=== PATIENT | female | born 1950 | race Caucasian/White ===

== ENCOUNTER 2017-09-05 10:08 | Observation (INO) | payer MEDICARE ==
[~2017-09-05] VITALS: Ht 170.2 cm; Wt 72.2 kg
[~2017-09-05 10:08] MED LIST: CALC1TAB PO; CARB1DRO OU; CETI-101 PO; CHOL200026 PO; CRAN500C3 PO; ESOM40CA PO; LACT1CAP70 PO; LEVO50TA11 PO; LEVO75TA10 PO; MOME17N NASAL; MULTIVITAMIN PO; POLY17PO4 PO; TAMO20TA4 PO; TRAM-355 PO; [UNRECOGNIZED DRUG - OTHER] PO
[2017-09-05] MEDS ORDERED: SODIUM CHLORIDE 0.9% 1000ML 1,000 ML IV ONE (11:23)
[2017-09-05] MEDS ORDERED: ONDANSETRON HCL MDV 20ML 2 MG/ML VIAL ONE (11:24)
[2017-09-05 11:26] LABS: BASOPHILS % (AUTO) 0.3 % (0.0-5.0); EOSINOPHILS % (AUTO) 1.1 % (0.0-8.0); HEMATOCRIT 31.1 % (36-48); LYMPHOCYTES % (AUTO) 10.5 % (21.0-51.0); MEAN CORPUSCULAR HGB CONC 35.3 g/dL (32.0-36.0); MEAN CORPUSCULAR VOLUME 90.8 fL (79-99); MONOCYTES % (AUTO) 3.2 % (3.0-13.0); NEUTROPHILS % (AUTO) 84.9 % (40.0-77.0); PLATELET COUNT (AUTO) 150 K/uL (130-400); RED BLOOD CELL COUNT(AUTO) 3.43 MIL/uL (4.00-5.50); RED CELL DISTRIBUTION WIDTH 19.2 % (11.0-15.5); WHITE BLOOD COUNT (AUTO) 5.2 K/uL (4.8-10.8)
[2017-09-05 11:29] LABS: CREATININE 1.1 mg/dL (0.5-1.5); POTASSIUM 3.9 mmol/L (3.5-5.1)
[2017-09-05 11:34] LABS: ALBUMIN 3.8 g/dL (3.5-5.0); BILIRUBIN,TOTAL 0.4 mg/dL (0.2-1.0); INR 0.98 (0.85-1.15); PROTHROMBIN TIME 10.3 SEC (9.6-11.6); TOTAL PROTEIN, SERUM 6.5 g/dL (6.0-8.3)
[2017-09-05 12:01] LABS: PARTIAL THROMBOPLASTIN TIME > 120.0 SEC (26.3-35.5)
[2017-09-05] MEDS ORDERED: CEFTRIAXONE SODIUM 1 GM ONE (13:00)
[2017-09-05] MEDS ORDERED: MORPHINE SULFATE 4 MG/1ML SYG ONE ×2 (13:00→19:10)
[2017-09-05] MEDS ORDERED: HYDRALAZINE HCL 20 MG/ML VIAL IV PRN (15:30)
[2017-09-05] MEDS ORDERED: GUAIFENESIN-DM 200/20 MG 10 ML PO PRN (15:30)
[2017-09-05] MEDS ORDERED: ACETAMINOPHEN 325 MG TAB PO PRN (15:30)
[2017-09-05] MEDS ORDERED: MORPHINE SULFATE 2 MG/ML 1ML SYG IM PRN (15:30)
[2017-09-05 19:45] VITALS: BP 120/77
[2017-09-05] MEDS: LACTULOSE 20 GM/30 ML UDCUP PO SCH (21:03)
[2017-09-05 23:46] VITALS: BP 118/70
[2017-09-05] MEDS: SODIUM CHLORIDE 0.9% 1000ML 1,000 ML IV SCH (23:51)
[2017-09-06] MEDS ORDERED: MAGN500C15 PO (01:56)
[2017-09-06] MEDS ORDERED: PANT40TA25 PO (01:56)
[2017-09-06] MEDS ORDERED: ABEM100T PO (01:56)
[2017-09-06 04:00] VITALS: BP 111/60
[2017-09-06] MEDS ORDERED: MORPHINE SULFATE 4 MG/1ML SYG ONE (04:11)
[2017-09-06] MEDS: LACTULOSE 20 GM/30 ML UDCUP PO SCH ×3 (04:14→14:41)
[2017-09-06 05:39] LABS: HEMATOCRIT 25.3 % (36-48); MEAN CORPUSCULAR HEMOGLOBIN 33.9 pg (27.0-33.0); MEAN CORPUSCULAR HGB CONC 36.9 g/dL (32.0-36.0); PLATELET COUNT (AUTO) 119 K/uL (130-400); RED BLOOD CELL COUNT(AUTO) 2.76 MIL/uL (4.00-5.50); RED CELL DISTRIBUTION WIDTH 19.7 % (11.0-15.5); WHITE BLOOD COUNT (AUTO) 2.9 K/uL (4.8-10.8)
[2017-09-06 05:45] LABS: CREATININE 0.9 mg/dL (0.5-1.5); POTASSIUM 4.3 mmol/L (3.5-5.1)
[2017-09-06] MEDS ORDERED: MORPHINE SULFATE 4 MG/1ML SYG IVP PRN (06:30)
[2017-09-06 07:39] LABS: EOSINOPHILS % (MANUAL) 11 % (1-6); LYMPHOCYTES % (MANUAL) 29 % (22-44); MONOCYTES % (MANUAL) 3 % (2-9); SEGMENTED NEUTROPHILS % 57 % (40-70)
[2017-09-06 07:40] LABS: MAN.DIFF COMMENT-IMPRESSION MANUAL DIFFERENTIAL; PLATELET MORPHOLOGY COMMENT SLIGHTLY DECREASED
[2017-09-06 08:00] VITALS: BP 97/66
[2017-09-06] MEDS ORDERED: PANTOPRAZOLE SODIUM 40 MG TABLET.DR PO SCH (09:00)
[2017-09-06] MEDS: SODIUM CHLORIDE 0.9% 1000ML 1,000 ML IV SCH (09:43)
[2017-09-06] MEDS: ONDANSETRON HCL MDV 20ML 2 MG/ML VIAL IV PRN ×2 (11:42→17:54)
[2017-09-06 12:00] VITALS: BP 111/70
[2017-09-06] MEDS ORDERED: LACTOBACILLUS RHAMNOSUS GG 1 EACH CAP.SPRINK PO SCH (12:00)
[2017-09-06 13:38] LABS: APPEARANCE,URINE Clear (CLEAR); BILIRUBIN,URINE Negative (NEGATIVE); COLOR,URINE Yellow (YELLOW); GLUCOSE, URINE (UA) Negative (NEGATIVE); KETONES,URINE Negative (NEGATIVE); LEUKOCYTE ESTERASE ,URINE Negative (NEGATIVE); NITRATE,URINE Negative (NEGATIVE); OCCULT BLOOD,URINE Nonhemolyzed Trace (NEGATIVE); PROTEIN,URINE Negative (NEGATIVE); UROBILINOGEN,URINE 0.2 mg/dL (0.2-1.0)
[2017-09-06 14:03] LABS: BACTERIA,URINE Rare /HPF (None Seen); RBC,URINE 0-1 /HPF (0-1); SQUAMOUS EPITHELIAL CELL,UR Rare /HPF (0-2); WBC,URINE 0-1 /HPF (0-1)
[2017-09-06] MEDS ORDERED: LACT10SO9 PO (16:02)
[2017-09-06] MEDS ORDERED: HEPARIN SODIUM/PF 100UNIT/ML 5ML SYRINGE IV SCH (17:30)
[2017-09-06] MEDS ORDERED: PROMETHAZINE HCL 25 MG/ML 1ML AMPULE IM SCH (17:45)
[2017-09-06] MEDS ORDERED: PROMETHAZINE HCL 25 MG/ML 1ML AMPULE IM ONE (17:49)
[2017-09-06 17:59] VITALS: BP 127/84
[2017-09-06] MEDS ORDERED: VERZENIO PO SCH (21:00)
[2017-09-06] MEDS ORDERED: CALCIUM 600 + VITAMIN D 400 TABLET PO SCH (21:00)
[2017-09-07] MEDS ORDERED: MAGNESIUM OXIDE 400 MG TABLET PO SCH (09:00)
[2017-09-07] MEDS ORDERED: **HM** VIT D3 2000 UNITS PO SCH (09:00)
[2017-09-07] MEDS ORDERED: TAMOXIFEN CITRATE 10 MG TABLET PO SCH (09:00)
== END 2017-09-06 18:40 | disposition home or self-care (01) ==
LOC: EDH 10:08 → EDHIP 15:21 → 4CH 19:36
PROVIDERS: ADMIT Family Medicine; ATTEND Family Medicine
DX: K59.03 Drug induced constipation (principal); K31.9 Disease of stomach and duodenum, unspecified; C50.919 Malignant neoplasm of unspecified site of unspecified female breast; C79.51 Secondary malignant neoplasm of bone; C78.7 Secondary malignant neoplasm of liver and intrahepatic bile duct; K58.9 Irritable bowel syndrome, unspecified; E03.9 Hypothyroidism, unspecified; E86.0 Dehydration; G89.3 Neoplasm related pain (acute) (chronic); T40.0X5A Adverse effect of opium, initial encounter; Y92.89 Other specified places as the place of occurrence of the external cause; Z85.3 Personal history of malignant neoplasm of breast; Z87.891 Personal history of nicotine dependence; Z79.891 Long term (current) use of opiate analgesic; Z88.5 Allergy status to narcotic agent; Z79.899 Other long term (current) drug therapy
CPT/HCPCS: 36415 ×2; 74176; 80048; 80053; 81001; 82550; 83735; 84443; 84484; 85007; 85025; 85027; 85610; 85730; 93005; 96361 ×2; 96372; 96374; 96376; 99285; G0378 ×27; J0696; J1642; J2270 ×3; J2550; J7030 ×2